=== PATIENT | male | born 1995 | race Caucasian/White ===

== ENCOUNTER 2016-08-01 10:04 | Emergency (ER) | payer OTHER ==
[~2016-08-01] VITALS: Ht 170.2 cm; Wt 71.7 kg
[2016-08-01] MEDS: IPRATROPIUM 0.5MG/ALBUTEROL 2.5MG INH SOL UD 3ML (DUONEB)(J7620) NEB SCH ×3 (11:21→11:38)
--- NOTE | 2016-08-01 11:47 | REP ---
Chest x-ray: Two views. History: Chest pain with inspiration. . Comparison study: April 03, 2016 . Findings: The lungs are well inflated and free of infiltrate. The pleural angles are sharp. The heart size is normal. Pulmonary vasculature is not increased. No significant bony abnormality is seen. Impression: Negative chest x-ray. Signed by Wale Meraz MD 08/01/2016 11:39 A
[2016-08-01 12:33] VITALS: BP 142/75
[2016-08-01] MEDS ORDERED: AUGM875T27 PO (12:40)
[2016-08-01] MEDS ORDERED: PRED20TA PO (12:40)
[2016-08-01] MEDS ORDERED: MUCI600T34 PO (12:40)
[2016-08-01] MEDS ORDERED: ALBU17IN INH (12:43)
[2016-08-01] MEDS ORDERED: CLAR1TAB2 PO (12:44)
[2016-08-01] MEDS ORDERED: AUGMENTIN 875 MG TAB PO ONE (12:45)
--- NOTE | 2016-08-01 20:34 | ECGEPIP ---
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
== END 2016-08-01 13:09 | disposition home or self-care (01) ==
LOC: M ED 10:55
DX: J20.9 Acute bronchitis, unspecified (principal); J01.90 Acute sinusitis, unspecified; R07.89 Other chest pain; Z87.891 Personal history of nicotine dependence; R91.1 Solitary pulmonary nodule

== ENCOUNTER 2016-09-10 12:01 | Emergency (ER) | payer OTHER ==
[~2016-09-10] VITALS: Ht 170.2 cm; Wt 71.7 kg
[~2016-09-10 12:01] MED LIST: ALBU17IN INH; AUGM875T27 PO; CLAR1TAB2 PO; MUCI600T34 PO; PRED20TA PO
[2016-09-10] MEDS ORDERED: KETOROLAC 30 MG/ML VIAL (J1885) IV ONE (13:00)
[2016-09-10] MEDS ORDERED: ONDANSETRON 4MG/2ML VIAL (J2405) IV ONE (13:00)
[2016-09-10] MEDS ORDERED: NS 1,000 ML IV ONE (13:00)
[2016-09-10 13:10] LABS: BASO % 0.6 % (0.0-1.0); EOS # 0.1 K/mm3 (0.0-0.50); EOS % 1.2 % (0.0-3.0); LARGE UNSTAINED CELL # 0.1 K/mm3 (0.0-0.4); LARGE UNSTAINED CELL % 1.6 % (0.0-4.0); LYMPH # 2.2 K/mm3 (1.5-6.5); LYMPH % 37.2 % (24.0-44.0); MEAN CORPUSCULAR HEMOGLOBIN 31.7 pg (27.0-33.0); MEAN CORPUSCULAR HGB CONC 36.2 g/dl (32.0-36.5); MEAN CORPUSCULAR VOLUME 87.7 fl (80.0-96.0); MONO # 0.4 K/mm3 (0.0-0.8); MONO % 6.2 % (0.0-5.0); NEUTROPHILS # 3.2 K/mm3 (1.8-7.7); NEUTROPHILS % 53.2 % (36.0-66.0); PLATELET COUNT, AUTOMATED 228 k/mm3 (150-450); RED CELL DISTRIBUTION WIDTH 11.8 % (11.5-14.5)
[2016-09-10 13:44] LABS: ALBUMIN 4.5 GM/DL (3.2-5.2); ALBUMIN/GLOBULIN RATIO 1.15 (1.00-1.93); ALKALINE PHOSPHATASE 75 U/L (45-117); ALT/SGPT 23 U/L (12-78); AMYLASE 67 U/L (25-115); ANION GAP 4 MEQ/L (8-16); AST/SGOT 21 U/L (15-37); BILIRUBIN,DIRECT 0.1 MG/DL (0.0-0.2); BILIRUBIN,TOTAL 0.6 MG/DL (0.2-1.0); BLOOD UREA NITROGEN 16 MG/DL (7-18); CALCIUM LEVEL 9.4 MG/DL (8.5-10.1); CARBON DIOXIDE LEVEL 29 MEQ/L (21-32); CHLORIDE LEVEL 105 MEQ/L (98-107); CREATININE FOR GFR 1.18 MG/DL (0.70-1.30); GLOMERULAR FILTRATION RATE > 60.0 (>60); GLUCOSE, FASTING 91 MG/DL (70-105); POTASSIUM SERUM 4.3 MEQ/L (3.5-5.1); SODIUM LEVEL 138 MEQ/L (136-145); TOTAL PROTEIN 8.4 GM/DL (6.4-8.2)
[2016-09-10] MEDS ORDERED: ZOFR4TAB3 PO (15:08)
[2016-09-10 15:12] VITALS: BP 123/69
== END 2016-09-10 15:38 | disposition home or self-care (01) ==
LOC: M ED 13:02
DX: R11.2 Nausea with vomiting, unspecified (principal); R19.7 Diarrhea, unspecified
CPT/HCPCS: 36415; 80048; 80076; 82150; 83690; 85025; 96361; 96374; 96375; 99283; J1885; J2405

== ENCOUNTER → 2018-10-14 | Outpatient (CLI) | payer OTHER ==
[~2018-10-14] MED LIST changes: -AUGM875T27 PO; +AUGM875T28 PO; -MUCI600T34 PO; +MUCI600T37 PO; +ZOFR4TAB14 PO
--- NOTE | 2018-10-14 14:01 | REP ---
Clinical: Dyspnea . Comparison: 08/01/2016 . Technique: PA and lateral. Findings: The mediastinum and cardiac silhouette are normal. The lung albright are clear and without acute consolidation, effusion, or pneumothorax. The skeletal structures are intact and normal. Impression: 1. No acute cardiopulmonary process. Electronically Signed by Zheng Cassidy MD 10/14/2018 01:53 P
== END ==
LOC: M SMT 10:48
PROVIDERS: ATTEND Physician Assistant
DX: R06.00 Dyspnea, unspecified (principal)

== ENCOUNTER → 2018-10-20 | Outpatient (CLI) | payer OTHER ==
--- NOTE | 2018-10-20 07:20 | PFTRPT ---
Height: 67.00 Inches Weight: 165.00 Lbs BSA: 1.86 Diagnosis: R06.00 DATE OF PROCEDURE: 10/20/2018 ORDERED BY: Jamari Oconnor PA-C Spirometry: Pre and post bronchodilator study of excellent quality. Forced vital capacity normal. FEV1 in proportion. Obstructive index is, therefore, normal. Flow Volume Loop: Expiratory limb of the flow volume loop is normal. No significant bronchodilator response identified. Lung Volumes: Total lung capacity normal. Residual volume in proportion. Diffusing Capacity: Diffusing capacity is reduced but does correct for alveolar volume. Hemoglobin: Hemoglobin acceptable at 14.5. Airways Mechanics: Airway resistance and conductance are normal. IMPRESSION: Decreased absolute diffusing capacity requires clinical correlation. MTDD
== END ==
LOC: M CARPUL 06:41
PROVIDERS: ATTEND Physician Assistant
DX: R06.00 Dyspnea, unspecified (principal)

== ENCOUNTER → 2018-11-03 | Outpatient (CLI) | payer OTHER ==
[~2018-11-03] MED LIST changes: +METHACHOLINE KIT (J7674) INH ONE
--- NOTE | 2018-11-03 15:42 | PFTRPT ---
Site: [facility], [address] [place], [address] ID: [id number] Name: EMILY ABURTO Visit Date: 11/03/2018 Second ID: [id number] Referring Doctor: VERONICA Oconnor Marcus, M Reviewing Doctor: Jason Kauffman MD Newspaper Subscription Solicitor: Maurisio OSMAN RRT Age: 23 : 1995 Sex: Male Race: Height: 67.00 Inches Weight: 162.00 Lbs BSA: 1.85 Order IDs: [id number] Requested Test(s): <RESP-PFT.METH CHAL> Diagnosis: R06.00 of albuterol for postbronchodilator. Review Status: Not Reviewed Pre-Bronch Post-Bronch Pred Actual %Pred Actual %Chng SPIROMETRY FVC (L) 5.04 4.40 87 4.33 -1 FEV1 (L) 4.19 3.77 90 3.68 -2 FEV1/FVC (%) 83 86 103 85 FEF 25% (L/sec) 7.91 7.86 99 7.21 -8 FEF 50% (L/sec) 5.65 4.98 88 4.51 -9 FEF 75% (L/sec) 2.13 2.07 96 1.83 -11 FEF 25-75% (L/sec) 4.41 4.34 98 3.88 -10 FEF Max (L/sec) 9.55 8.78 91 8.34 -5 FIVC (L) 4.42 4.40 FIF 50% (L/sec) 5.61 6.01 107 5.21 -13 FIF Max (L/sec) 6.05 5.66 -6 Expiratory Time (sec) 6.46 6.96 7 Back Extrap Vol (L) 0.15 0.16 6 Time To FEFmax (sec) 0.085 0.084 -1
== END ==
LOC: M CARPUL 14:54
PROVIDERS: ATTEND Physician Assistant
DX: R06.00 Dyspnea, unspecified (principal)
CPT/HCPCS: 94070; J7674

== ENCOUNTER → 2018-11-21 | Outpatient (CLI) | payer OTHER ==
[~2018-11-21] MED LIST changes: -METHACHOLINE KIT (J7674) INH ONE
--- NOTE | 2018-11-21 15:02 | REP ---
Clinical: Cough and wheezing . Comparison: 10/14/2018 . Technique: PA and lateral. Findings: The mediastinum and cardiac silhouette are normal. The lung albright are clear and without acute consolidation, effusion, or pneumothorax. The skeletal structures are intact and normal. Impression: 1. No acute cardiopulmonary process. Electronically Signed by Zheng Cassidy MD 11/21/2018 12:17 P
== END ==
LOC: M LRY 11:58
PROVIDERS: ATTEND Physician Assistant
DX: R06.2 Wheezing (principal); R05 Cough
CPT/HCPCS: 71046; 94640; G0463

== ENCOUNTER 2018-12-20 15:16 | Emergency (ER) | payer OTHER ==
[~2018-12-20] VITALS: Ht 170.2 cm; Wt 72.7 kg
[2018-12-20 16:50] LABS: BASO % 0.4 % (0.0-1.0); EOS # 0.1 10^3/uL (0.0-0.50); EOS % 2.5 % (0.0-3.0); HEMATOCRIT 41.9 % (42.0-52.0); HEMOGLOBIN 14.4 g/dl (13.5-17.5); LYMPH % 35.4 % (24.0-44.0); MEAN CORPUSCULAR HEMOGLOBIN 30.7 pg (27.0-33.0); MEAN CORPUSCULAR HGB CONC 34.4 g/dl (32.0-36.5); MEAN CORPUSCULAR VOLUME 89.3 fl (80.0-96.0); MONO # 0.5 10^3/uL (0.0-0.8); MONO % 9.1 % (0.0-5.0); NEUTROPHILS % 52.4 % (36.0-66.0); PLATELET COUNT, AUTOMATED 242 10^3/uL (150-450); RED BLOOD COUNT 4.69 10^6/uL (4.30-6.10); WHITE BLOOD COUNT 5.6 10^3/uL (4.0-10.0)
[2018-12-20 17:17] LABS: BLOOD UREA NITROGEN 16 MG/DL (7-18); CARBON DIOXIDE LEVEL 27 MEQ/L (21-32); CHLORIDE LEVEL 109 MEQ/L (98-107); CPK CREATINE PHOSPHOKINASE 127 U/L (39-308); CREATININE FOR GFR 1.15 MG/DL (0.70-1.30); GLOMERULAR FILTRATION RATE > 60.0 (>60); GLUCOSE, FASTING 94 MG/DL (70-100); POTASSIUM SERUM 4.1 MEQ/L (3.5-5.1); SODIUM LEVEL 143 MEQ/L (136-145)
[2018-12-20 18:14] VITALS: BP 124/63
--- NOTE | 2018-12-20 21:32 | ECGEPIP ---
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
== END 2018-12-20 18:20 | disposition home or self-care (01) ==
LOC: M ED 15:16
DX: R06.00 Dyspnea, unspecified (principal); D64.9 Anemia, unspecified; R07.9 Chest pain, unspecified; R00.1 Bradycardia, unspecified; R91.1 Solitary pulmonary nodule; Z72.0 Tobacco use; Z83.2 Family history of diseases of the blood and blood-forming organs and certain disorders involving the immune mechanism

== ENCOUNTER 2018-12-31 05:18 | Emergency (ER) | payer OTHER ==
[~2018-12-31] VITALS: Ht 170.2 cm; Wt 72.7 kg
[2018-12-31 06:14] LABS: BASO % 0.6 % (0.0-1.0); EOS # 0.2 10^3/uL (0.0-0.50); EOS % 2.6 % (0.0-3.0); HEMATOCRIT 46.2 % (42.0-52.0); LYMPH # 2.1 10^3/uL (1.5-6.5); LYMPH % 32.4 % (24.0-44.0); MEAN CORPUSCULAR HEMOGLOBIN 30.5 pg (27.0-33.0); MEAN CORPUSCULAR HGB CONC 34.6 g/dl (32.0-36.5); MEAN CORPUSCULAR VOLUME 88.2 fl (80.0-96.0); MONO # 0.7 10^3/uL (0.0-0.8); MONO % 10.6 % (0.0-5.0); NEUTROPHILS # 3.5 10^3/uL (1.8-7.7); NEUTROPHILS % 53.5 % (36.0-66.0); PLATELET COUNT, AUTOMATED 243 10^3/uL (150-450); RED BLOOD COUNT 5.24 10^6/uL (4.30-6.10); WHITE BLOOD COUNT 6.5 10^3/uL (4.0-10.0)
--- NOTE | 2018-12-31 07:10 | REP ---
Clinical: Chest pain . Comparison: 11/21/2018 . Technique: PA and lateral. Findings: The mediastinum and cardiac silhouette are normal. The lung albright are clear and without acute consolidation, effusion, or pneumothorax. The skeletal structures are intact and normal. Impression: 1. No acute cardiopulmonary process. Electronically Signed by Zheng Cassidy MD 12/31/2018 07:01 A
[2018-12-31 07:20] LABS: INR 0.99; PROTHROMBIN TIME 12.8 SECONDS (11.8-14.0)
[2018-12-31 07:21] LABS: PARTIAL THROMBOPLASTIN TIME 28.7 SECONDS (25.0-38.4)
--- NOTE | 2018-12-31 07:26 | ECGEPIP ---
[facility] - ED Test Date: 2018-12-31 Pat Name: EMILY ABURTO Department: Room: - Gender: Male Through Operator: : 1995 Requested By: KAYA Hung Order Number: [id number] Reading MD: Shantanu Galaviz Measurements Intervals [place] Rate: 51 P: 49 [place]: 171 QRS: 76 QRSD: 117 T: 36 QT: 389 QTc: 359 Interpretive Statements SINUS BRADYCARDIA BENIGN EARLY REPOLARIZATION SIMILAR TO 12/20/18 Electronically Signed on 12-31-2018 7:26:34 EDT by Shantanu Galaviz
[2018-12-31 07:31] LABS: ALBUMIN 3.8 GM/DL (3.2-5.2); ALT/SGPT 29 U/L (12-78); BILIRUBIN,DIRECT < 0.1 MG/DL (0.0-0.2); BILIRUBIN,TOTAL 0.2 MG/DL (0.2-1.0); BLOOD UREA NITROGEN 11 MG/DL (7-18); CALCIUM LEVEL 8.8 MG/DL (8.5-10.1); CARBON DIOXIDE LEVEL 28 MEQ/L (21-32); CHLORIDE LEVEL 107 MEQ/L (98-107); CK-MB VALUE MASS < 1.0 NG/ML (<3.6); CPK CREATINE PHOSPHOKINASE 84 U/L (39-308); CREATININE FOR GFR 1.06 MG/DL (0.70-1.30); FREE T4 0.99 NG/DL (0.76-1.46); GLOMERULAR FILTRATION RATE > 60.0 (>60); GLUCOSE, FASTING 100 MG/DL (70-100); LIPASE 169 U/L (73-393); MB/CK RELATIVE INDEX 1.19 (< OR =4); POTASSIUM SERUM 4.4 MEQ/L (3.5-5.1); SODIUM LEVEL 139 MEQ/L (136-145); TOTAL PROTEIN 6.8 GM/DL (6.4-8.2); TROPONIN I < 0.02 NG/ML (< 0.10)
[2018-12-31 07:43] LABS: D-DIMER QUANT 232.36 ng/ml (<500)
--- NOTE | 2018-12-31 07:47 | REPVR ---
EXAM: CT Abdomen and Pelvis Without Contrast EXAM DATE/TIME: 12/31/2018 6:42 AM CLINICAL HISTORY: 23 years old, male; Abdominal pain; Localized; Right lower quadrant (rlq); Additional info: Rlq pain TECHNIQUE: Imaging protocol: Axial computed tomography images of the abdomen and pelvis without contrast. Coronal and sagittal reformatted images were created and reviewed. Radiation optimization: All CT scans at this facility use at least one of these dose optimization techniques: automated exposure control; mA and/or kV adjustment per patient size (includes targeted exams where dose is matched to clinical indication); or iterative reconstruction. COMPARISON: CT ABD PELVIS WITH CONTRAST 04/08/2015 2:21 PM FINDINGS: Lungs: Dependent atelectasis at the left base. Liver: Mild hepatomegaly. Gallbladder and bile ducts: Normal. No calcified stones. No ductal dilation. Pancreas: Normal. No ductal dilation. Spleen: Normal. No splenomegaly. Adrenals: Normal. No mass. Kidneys and ureters: No hydronephrosis or nephrolithiasis bilaterally. Stomach and bowel: Bowel wall thickening with mild adjacent fat stranding involving ascending and proximal transverse colon. This may represent underdistention versus colitis. Correlate clinically. Appendix: Normal appendix. Intraperitoneal space: Normal. No free air. No significant fluid collection. Vasculature: Normal. No abdominal aortic aneurysm. Lymph nodes: Normal. No enlarged lymph nodes. Bladder: Unremarkable as visualized. Reproductive: Unremarkable as visualized. Bones/joints: No acute fracture. No dislocation. Soft tissues: Unremarkable. IMPRESSION: 1. Bowel wall thickening with mild adjacent fat stranding involving ascending and proximal transverse colon. This may represent underdistention versus colitis. Correlate clinically. 2. Normal appendix. 3. No hydronephrosis or nephrolithiasis bilaterally. Electronically signed by: Umberto Ralph On 12/31/2018 07:47:01 AM
[2018-12-31] MEDS ORDERED: KETOROLAC 30 MG/ML VIAL (J1885) IV ONE (08:15)
[2018-12-31] MEDS ORDERED: KETOROLAC TROMETHAMINE 10 MG TAB PO ONE ×2 (08:45→09:00)
[2018-12-31 09:00] VITALS: BP 136/67
== END 2018-12-31 09:13 | disposition home or self-care (01) ==
LOC: M ED 05:18
DX: R10.9 Unspecified abdominal pain (principal); R00.1 Bradycardia, unspecified; R11.0 Nausea; R06.02 Shortness of breath; M79.604 Pain in right leg; M79.605 Pain in left leg; R91.1 Solitary pulmonary nodule

== ENCOUNTER 2019-06-29 04:33 | Emergency (ER) | payer OTHER ==
[~2019-06-29] VITALS: Ht 167.6 cm; Wt 76.8 kg
[2019-06-29] MEDS ORDERED: COLDLIQ8 PO (04:38)
[2019-06-29 05:33] LABS: INFLUENZA A AMPLIFICATION NEGATIVE (NEGATIVE); INFLUENZA B AMPLIFICATION NEGATIVE (NEGATIVE)
[2019-06-29] MEDS ORDERED: KETOROLAC 60 MG/2 ML VIAL (J1885) IM ONE (06:30)
[2019-06-29] MEDS ORDERED: AUGM500T34 PO (06:56)
[2019-06-29] MEDS ORDERED: PRED20TA PO (06:56)
[2019-06-29] MEDS ORDERED: methylPREDNISolone INJ 125 MG/2 ML VIAL (J2930) IM ONE (07:00)
[2019-06-29] MEDS ORDERED: ACETAMINOPHEN TAB 650MG DOSE (2X325MG) As Ordered ONE (07:18)
--- NOTE | 2019-06-29 07:27 | REP ---
Clinical: Cough . Comparison: 12/31/2018 . Technique: PA and lateral. Findings: The mediastinum and cardiac silhouette are normal. The lung albright are clear and without acute consolidation, effusion, or pneumothorax. The skeletal structures are intact and normal. Impression: 1. No focal consolidation. Electronically Signed by Zheng Cassidy MD 06/29/2019 07:19 A
[2019-06-29 07:28] VITALS: BP 115/56
[2019-06-29] MEDS ORDERED: ACETAMINOPHEN TAB 650MG DOSE (2X325MG) PO ONE (07:30)
== END 2019-06-29 07:47 | disposition home or self-care (01) ==
LOC: M ED 04:33
DX: J40 Bronchitis, not specified as acute or chronic (principal); Z79.899 Other long term (current) drug therapy
CPT/HCPCS: 71046; 87502; 87880; 96372; 99284; J1885; J2930

== ENCOUNTER 2020-12-07 08:26 | Emergency (ER) | payer OTHER ==
[~2020-12-07] VITALS: Ht 170.2 cm; Wt 76.8 kg
[~2020-12-07 08:26] MED LIST changes: +AUGM500T34 PO; +COLDLIQ8 PO
[2020-12-07] MEDS ORDERED: ACET-683 PO (08:42)
[2020-12-07] MEDS ORDERED: D 50CAP2 PO (08:42)
--- NOTE | 2020-12-07 10:16 | REP ---
INDICATION: left testicular pain COMPARISON: None. TECHNIQUE: Andujar scale and color Doppler evaluation using linear and curved array transducer with color Doppler evaluation. FINDINGS: The testicles and epididymi are relatively normal in contour, size, echogenicity, vascularity and overall appearance. There is no evidence for intratesticular mass lesion, infectious/inflammatory process, or torsion. No obvious hydroceles or varicoceles are identified. Patient's left testicular palpable mass corresponds to normal epididymal tail. Right testicle measures 4.1 x 1.9 x 2.7 cm. Left testicle measures 4.9 x 2.2 x 3.2 cm. IMPRESSION: Essentially normal scrotal ultrasound. Palpable left-sided mass corresponds to normal epididymal tail. <Electronically signed by Zheng Cassidy > 12/07/20 [id number]
[2020-12-07 11:17] VITALS: BP 144/65
[2020-12-07 12:19] LABS: GC DNA AMPLIFICATION NEGATIVE (NEGATIVE)
== END 2020-12-07 11:20 | disposition home or self-care (01) ==
LOC: M ED 08:26
DX: N50.812 Left testicular pain (principal); E55.9 Vitamin D deficiency, unspecified

== ENCOUNTER 2021-01-28 16:12 | Emergency (ER) | payer OTHER ==
[~2021-01-28] VITALS: Ht 170.2 cm; Wt 74.8 kg
[2021-01-28 16:12] VITALS: BP 135/75
[~2021-01-28 16:12] MED LIST changes: +ACET-683 PO; +D 50CAP2 PO
--- NOTE | 2021-01-28 17:06 | REP ---
INDICATION: punched a wall. COMPARISON: None. TECHNIQUE: Four views of the right hand were obtained. FINDINGS: There is an impacted fracture of the base of the 5th metacarpal. There is subluxation of the 5th carpal metacarpal joint. IMPRESSION: 1. Impacted fracture of the base of the 5th metacarpal. 2. There is subluxation of the 5th carpometacarpal joint. <Electronically signed by Malvin Leyva > 01/28/21 [id number]
== END 2021-01-28 18:06 | disposition home or self-care (01) ==
LOC: M ED 16:12
DX: S62.316A Displaced fracture of base of fifth metacarpal bone, right hand, initial encounter for closed fracture (principal); S63.266A Dislocation of metacarpophalangeal joint of right little finger, initial encounter; W22.8XXA Striking against or struck by other objects, initial encounter; Y92.018 Other place in single-family (private) house as the place of occurrence of the external cause

== ENCOUNTER 2022-01-31 03:58 | Emergency (ER) | payer OTHER ==
[~2022-01-31] VITALS: Ht 170.2 cm; Wt 77.3 kg
[2022-01-31] MEDS ORDERED: PHEN240L PO (04:03)
[2022-01-31 07:53] LABS: MONO SCRN NEGATIVE (NEGATIVE)
[2022-01-31] MEDS ORDERED: ACETAMINOPHEN 500 MG TAB PO ONE (07:55)
[2022-01-31] MEDS ORDERED: AMOX875T PO (08:03)
[2022-01-31 08:20] VITALS: BP 134/84
== END 2022-01-31 08:15 | disposition home or self-care (01) ==
LOC: M ED 03:58
DX: J02.9 Acute pharyngitis, unspecified (principal); K08.89 Other specified disorders of teeth and supporting structures; F17.290 Nicotine dependence, other tobacco product, uncomplicated

== ENCOUNTER 2022-02-04 05:38 | Emergency (ER) | payer OTHER ==
[~2022-02-04] VITALS: Ht 170.2 cm; Wt 77.3 kg
[~2022-02-04 05:38] MED LIST changes: +AMOX875T PO; +PHEN240L PO
[2022-02-04 05:39] VITALS: BP 139/70
[2022-02-04] MEDS ORDERED: ACET-841 PO (05:45)
[2022-02-04 09:26] LABS: BASO # 0.1 10^3/uL (0.0-0.2); BASO % 0.8 % (0.0-1.0); EOS # 0.1 10^3/uL (0.0-0.5); EOS % 1.9 % (0.0-3.0); HEMATOCRIT 43.3 % (42.0-52.0); HEMOGLOBIN 15.2 g/dl (13.5-17.5); LYMPH % 47.5 % (24.0-44.0); MEAN CORPUSCULAR HEMOGLOBIN 30.5 pg (27.0-33.0); MEAN CORPUSCULAR HGB CONC 35.1 g/dl (32.0-36.5); MEAN CORPUSCULAR VOLUME 86.9 fl (80.0-96.0); MONO # 0.6 10^3/uL (0.0-0.8); MONO % 9.7 % (2.0-8.0); NEUTROPHILS # 2.5 10^3/uL (1.5-8.5); NEUTROPHILS % 39.8 % (36.0-66.0); PLATELET COUNT, AUTOMATED 249 10^3/uL (150-450); RED BLOOD COUNT 4.98 10^6/uL (4.30-6.10); WHITE BLOOD COUNT 6.3 10^3/uL (4.0-10.0)
[2022-02-04 10:13] LABS: BLOOD UREA NITROGEN 15 MG/DL (7-18); CALCIUM LEVEL 9.7 MG/DL (8.5-10.1); CARBON DIOXIDE LEVEL 28 MEQ/L (21-32); CHLORIDE LEVEL 107 MEQ/L (98-107); CREATININE FOR GFR 1.15 MG/DL (0.70-1.30); FREE THYROXINE INDEX 2.8 % (1.4-3.8); GLOMERULAR FILTRATION RATE > 60.0 (>60); GLUCOSE, FASTING 92 MG/DL (70-100); POTASSIUM SERUM 4.5 MEQ/L (3.5-5.1); SODIUM LEVEL 137 MEQ/L (136-145); T UPTAKE 35 % (33-40)
[2022-02-04 10:14] LABS: THYROID STIMULATING HORMONE 1.12 uIU/ML (0.358-3.740); THYROXINE (T4) 8.8 UG/DL (4.5-12.0)
[2022-02-04] MEDS ORDERED: BENZ1LOZ9 PO (10:22)
== END 2022-02-04 10:35 | disposition home or self-care (01) ==
LOC: M ED 05:38
DX: J02.9 Acute pharyngitis, unspecified (principal); R59.0 Localized enlarged lymph nodes